=== PATIENT | female | born 1970 | race Caucasian/White ===

== ENCOUNTER 2017-06-20 20:49 | Emergency (ER) | payer OTHER ==
--- NOTE | 2017-06-20 21:31 | RAD ---
RIBS LEFT SIDED GREATER THAN OR EQUAL 2 VIEW WITH PA CHEST X-RAY 06/20/17 HISTORY: Emergency exam. COMPARISON: None. FINDINGS: Lungs are clear. No pneumothorax or effusion. Cardiac silhouette and mediastinal contours are within normal limits. No displaced left sided rib fracture. IMPRESSION: 1. Clear lungs. 2. No displaced left sided rib fracture. POS: [facility]
[2017-06-20] MEDS ORDERED: HYDROcodone/Acetaminophen 5/325 mg Tablet ONE (21:48)
== END 2017-06-20 21:54 | disposition home or self-care (01) ==
LOC: SCSER 20:49
DX: S29.011A Strain of muscle and tendon of front wall of thorax, initial encounter (principal); J32.9 Chronic sinusitis, unspecified; X50.1XXA Overexertion from prolonged static or awkward postures, initial encounter

== ENCOUNTER 2017-07-25 12:28 | Outpatient (CLI) | payer OTHER ==
--- NOTE | 2017-07-25 13:17 | RAD ---
TWO VIEWS CHEST: Comparison: None. History: Cough since April. FINDINGS: Two views of the chest show normal sized cardiomediastinal silhouette. There is no evidence of consol idation, mass, or pleural effusion. The bones are unremarkable. IMPRESSION: No evidence of acute cardiopulmonary disease. POS: [facility]
== END 2017-07-25 12:29 | disposition home or self-care (01) ==
LOC: SCSRAD 12:28
PROVIDERS: ATTEND Internal Medicine Sleep Medicine
DX: R05 Cough (principal)
CPT/HCPCS: 71046

== ENCOUNTER 2019-07-15 22:16 | Emergency (ER) | payer OTHER ==
[2019-07-15] MEDS ORDERED: Metoclopramide HCl 10 MG/2 ML VIAL ONE (22:45)
[2019-07-15] MEDS ORDERED: diphenhydrAMINE 50 MG/ML VIAL ONE (22:45)
[2019-07-15] MEDS ORDERED: Acetaminophen 500 MG TAB ONE (22:45)
== END 2019-07-16 00:14 | disposition home or self-care (01) ==
LOC: ERS 22:16
DX: G43.909 Migraine, unspecified, not intractable, without status migrainosus (principal); E11.9 Type 2 diabetes mellitus without complications; F41.9 Anxiety disorder, unspecified; Z79.84 Long term (current) use of oral hypoglycemic drugs; Z79.899 Other long term (current) drug therapy
CPT/HCPCS: 96365; 96375; J1200; J2765

== ENCOUNTER 2019-08-08 12:22 | Outpatient (CLI) | payer OTHER ==
--- NOTE | 2019-08-08 14:04 | MRI ---
MRI lumbar spine noncontrast HISTORY: Low back pain. Bilateral leg radiculopathy. FINDINGS: Transitional vertebra is present at the lumbosacral junction. The conus medullaris has a normal appearance. Vertebral body heights and alignment are maintained. Th ere is mild osteophytosis of the facets at the lowest 2 levels. Desiccation of the disc at the lumbosacral junction. No focal disc herniation or nerve root compression. Central canal and neural foramina are patent. Inferior most axial images partially demonstrate a small oval cystic structures at the expected locat ion of each adnexa. Small Tarlov cysts are partially seen to be associated with the upper to mid sacral nerve roots. IMPRESSION : Very mild degenerative changes of lower lumbar spine. No focal disc herniation or nerve root compress ion.
--- NOTE | 2019-08-08 15:13 | MRI ---
MRI CERVICAL SPINE WITHOUT CONTRAST: Date: 08/08/2019 HISTORY: M54.12 cervical radiculopathy. Neck pain. COMPARISON: None. FINDINGS: The cerebellar tonsils terminate at the level of the foramen magnum. The cord signal itself is normal . No marrow infiltrative process. 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 Paraspinal soft tissues are unremarkable. No adenopathy. Levels are as follows: C2-3: Blocked vertebra with fusion of the anterior and posterior elements. No neural foraminal or sp inal canal narrowing. C3-4: Moderate degenerative disc space height loss. Moderate uncinate process hypertrophy. Minimal e ffacement of ventral CSF space. Mild facet arthrosis. No significant neural foraminal or spinal canal narrowing. C4-5: Mild degenerative disc space height loss with disc desiccation. Minimal facet arthrosis. Mild uncinate process hypertrophy. No significant neural foraminal or spinal canal narrowing. C5-C6: There is a superior end plate Schmorl's node at C6. Modic I end plate changes. Mild circumfer ential disc osteophyte complex, greatest in left lateral recess. Mild effacement of the ventral CSF s pace with near cord abutment. Spinal canal measures over 1.0 cm, not significantly narrowed. Mild lef t neural foraminal narrowing. C6-7: Circumferential disc bulge, small, with subforaminal disc osteophyte complexes. Minimal efface ment of the ventral CSF space without cord abutment. The spinal canal measures over 1.0 cm. No signif icant neural foraminal or spinal canal narrowing. C7-T1: Mild disc desiccation and height loss. Minimal uncinate process hypertrophy. No neural forami nal or spinal canal narrowing. IMPRESSION: 1. Moderate spondylosis mid cervical spine as described. 2. 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 POS: [facility]
== END 2019-08-08 12:23 | disposition home or self-care (01) ==
LOC: BICMRI 12:22
PROVIDERS: ATTEND Family Medicine
DX: M47.26 Other spondylosis with radiculopathy, lumbar region (principal); M47.22 Other spondylosis with radiculopathy, cervical region; Z98.1 Arthrodesis status
CPT/HCPCS: 72141; 72148